=== PATIENT | male | born 1945 | race Caucasian/White ===

== ENCOUNTER 2019-01-30 05:48 | Day surgery (SDC) | payer MEDICARE ==
[~2019-01-30] VITALS: Ht 185.4 cm; Wt 88.0 kg
[2019-01-30] VITALS (9 sets, daily range): BP systolic 89–152; BP diastolic 46–79
[~2019-01-30 05:48] MED LIST: EQ ASPIRIN ADUL81 MG PO; NITROSTAT0.4 MG SL; SIMVASTATIN10 MG PO; TOPROL XL25 MG PO
[2019-01-31 00:07] VITALS: BP 94/44
[2019-01-31 04:24] VITALS: BP 103/51
[2019-01-31 05:42] LABS: IMMATURE GRANULOCYTES 0.4 % (0.0-5.0); MEAN CELL VOLUME 95.9 fL CALC (80.0-100.0); MEAN CORPUSCULAR HGB 32.5 pG CALC (26.0-32.0); NEUT# 5.69 thou/uL (1.82-7.42); RED BLOOD COUNT 3.38 mill/uL (4.70-6.10); RED CELL DISTRI WIDTH 12.1 % (11.5-15.5)
[2019-01-31 05:59] LABS: HEMATOCRIT 32.4 % (39.0-50.0)
[2019-01-31 06:08] LABS: BUN 22 mg/dL (8-23); BUN/CREATININE RATIO 29 (12-20 (CALC)); CARBON DIOXIDE 28 mmol/l (22-30); CHLORIDE 105 mmol/l (95-108); CREATININE 0.8 mg/dL (0.7-1.3); GFR > 60 ML/MIN (>=60 (CALC)); GFR FOR AFR.AMER. > 60 ML/MIN (>=60 (CALC)); MAGNESIUM 1.8 mg/dL (1.6-2.3); SODIUM 137 mmol/l (137-146)
[2019-01-31 06:12] LABS: ANION GAP 8 (6-22 (CALC)); POTASSIUM 4.1 mmol/l (3.5-5.1)
[2019-01-31 07:32] VITALS: BP 110/52
== END 2019-01-31 12:52 | disposition home health service (06) ==
LOC: ORM 05:48 → MS2 10:38 → ORM 01-31 12:52
PROVIDERS: ATTEND Urology
PROC: XV508A4 Destruction of Prostate using Robotic Waterjet Ablation, Via Natural or Artificial Opening Endoscopic, New Technology Group 4 (ICD-10-PCS; principal; 2019-01-30)
DX: N40.1 Benign prostatic hyperplasia with lower urinary tract symptoms (principal); R35.1 Nocturia; R39.15 Urgency of urination; N52.9 Male erectile dysfunction, unspecified; I10 Essential (primary) hypertension; I25.10 Atherosclerotic heart disease of native coronary artery without angina pectoris; E78.5 Hyperlipidemia, unspecified; R97.20 Elevated prostate specific antigen [PSA]
CPT/HCPCS: J2270